=== PATIENT | male | born 1960 | race Caucasian/White ===

== ENCOUNTER → 2017-07-06 | Outpatient (CLI) | payer BC ==
--- NOTE | 2017-07-06 18:34 | PCVCIMAG ---
APPROVED REPORT Exam: Stress Echocardiogram Indication: Chest pain, abn ekg Patient Location: Echo lab Stress Nurse: Nimo Orozco RN Status: MIGUEL Ht: 5 ft 9 in HR: 102 bpm BP: 140/90 mmHg Rhythm: NSR,T wave abn Medical History Medical History: HTN,chol Cardiac Risk Factors: male,>50 yrs Pretest Chest Pain Characteristics: jaw pain,l arm numbness Exercise History: Physically active Procedure The patient underwent an Exercise Stress Test using the Joss Protocol. Blood pressure, heart rate, and EKG were monitored. An Echocardiogram was performed by civilian technician in four stages in quad fashion. At peak stress, four selected images were obtained and placed side by side with resting images for comparison. Stress Test Details Stress Test: Exercise stress testing was performed using a Joss protocol. HR Resting HR: 102 bpmMax Heart Rate (APMHR): 161 bpm Max HR Achieved: 157 bpmTarget HR (85% APMHR): 136 bpm % of APMHR: 97 Recovery HR: 123 bpm HR response to stress: Normal HR response to stress BP Resting BP: 140/90 mmHg Max BP: 162/84 mmHg Recovery BP: 120/84 mmHg ECG Resting ECG: Sinus Tachycardia, T wave abnormality Stress ECG: Sinus Rhythm ST Change: Non-ischemic Maximum ST Deviation: 1.2 mm Arrhythmia: Rare PVCs with exercise Recovery ECG: Sinus Rhythm Recovery ST Change: Non-ischemic Recovery ST Deviation: 0.85 mm Recovery Arrhythmia: None Clinical Reason for Termination: Maximal effort Stress Symptoms: Mild, no change with exercise Exercise duration: 10 min 58 sec Highest Stage Achieved: Stage 4: 4.2 mph at 16% grade. Exercise capacity: 13.7 METs Scale: Active Angina Score: Non-Limiting Stress ECG Conclusion The patient exercised according to the JOSS protocol for10:58 minutes, achieving a work level of Max. METS: 13.7 The resting heart rate of 102 bpm giovanni to a maximal heart rate of 157bpm. This value represents 97% of the maximal, age-predicted heart rate. The resting blood pressure of 140/90 mmHg, giovanni to a maximum blood pressure of 162/84 mmHg. The exercise test was stopped due to fatigue and dyspnea. Love Treadmill Score is 0.0 which is Moderate risk. Pre-Stress Echo The resting Echocardiogram showed normal left ventricular contractility with an estimated Ejection Fraction of about 55-60%. Normal wall motion in all segments on baseline images. Post-Stress Echo The stress Echocardiogram showed normal left ventricular contractility with an estimated Ejection Fraction of about 65-70%. Normal augmentation of wall motion in all segments on post stress images. Clinical No clinical or ECG evidence for ischemia. Conclusion Clinical Response: Non-ischemic Exercise Capacity: Superior Stress ECG Response: Non-ischemic Stress Echo Images: Non-ischemic No clinical, EKG or echocardiographic evidence for ischemia. No echocardiographic evidence for exercise induced ischemia. Normal stress echocardiogram with maximal exercise stress. <Conclusion> No clinical, EKG or echocardiographic evidence for ischemia. No echocardiographic evidence for exercise induced ischemia. Normal stress echocardiogram with maximal exercise stress.
== END | disposition home or self-care (01) ==
LOC: PCVCIMAG 16:47
PROVIDERS: ATTEND Internal Medicine Cardiovascular Disease
DX: I49.3 Ventricular premature depolarization (principal); R94.31 Abnormal electrocardiogram [ECG] [EKG]; I10 Essential (primary) hypertension; E78.5 Hyperlipidemia, unspecified
CPT/HCPCS: 80061; 93005; 93325; 93351; G0463

== ENCOUNTER → 2019-02-19 | Outpatient (CLI) | payer BC ==
--- NOTE | 2019-02-19 11:54 | PCVCIMAG ---
APPROVED REPORT Doppler Spectral Velocity Analysis PSV / EDVPSV / EDV ECA (R) 82 / 17 cm/sECA (L) 77 / 20 cm/s dICA (R) 49 / 24 cm/sdICA (L) 64 / 30 cm/s Jennifer (R) 82 / 38 cm/smICA (L) 52 / 25 cm/s pICA (R) 62 / 17 cm/spICA (L) 50 / 20 cm/s Bulb (R) 81 / 28 cm/sBulb (L) 51 / 20 cm/s dCCA (R) 87 / 33 cm/sdCCA (L) 91 / 27 cm/s mCCA (R) 82 / 30 cm/smCCA (L) 111 / 38 cm/s Vert (R) 63 / 25 cm/sVert (L) 43 / 14 cm/s ICA/CCA 0.94ICA/CCA 0.70 Findings The right carotid bulb has mild-moderate plaque. The right proximal internal carotid artery shows <40% stenosis. The right common carotid artery shows no significant stenosis. The right external carotid artery shows no significant stenosis. The left carotid bulb has minimal plaque. The left proximal internal carotid artery shows no significant stenosis. The left common carotid artery shows no significant stenosis. The left external carotid artery shows no significant stenosis. Conclusion 1. Right internal carotid artery stenosis (<40%) 2. Left internal carotid without significant stenosis 3. Antegrade vertebral flow
== END | disposition home or self-care (01) ==
LOC: PCVCIMAG 11:03
PROVIDERS: ATTEND Internal Medicine Cardiovascular Disease
DX: I65.23 Occlusion and stenosis of bilateral carotid arteries (principal); R09.89 Other specified symptoms and signs involving the circulatory and respiratory systems; E78.00 Pure hypercholesterolemia, unspecified
CPT/HCPCS: 93880

== ENCOUNTER → 2019-02-23 | Outpatient (CLI) | payer BC ==
[~2019-02-23] MED LIST: AMINOPHYLLINE 250 MG/10 ML VIAL. ONE; IV NORMAL SALINE 1000ML BAG 1,000 ML ONE; REGADENOSON 0.4 MG/5 ML DISP.SYRIN. IV ONE
--- NOTE | 2019-02-23 11:21 | PCVCIMAG ---
APPROVED REPORT Study performed: 02/23/2019 08:46:09 EXAM: Comprehensive 2D, Doppler, and color-flow Echocardiogram Patient Location: Echo lab Status: routine BSA: 2.15 HR: 84 bpmBP: 140/84 mmHg Rhythm: NSR w/ PVCs Other Information Study Quality: Adequate Risk Factors: Cardiac Risk Factors: HTN Indications CAD Chest Pain elevated coronary calcium >400 2D Dimensions IVSd: 10.79 (7-11mm) LVDd: 40.63 mm PWd: 8.70 (7-11mm)Ascending Ao: 45.57 (22-36mm) LVDs: 27.74 (25-40mm) Left Atrium: 37.47 (27-40mm) Aortic Root: 41.15 mm LV Single Plane 4CH: 56.18 % LV Single Plane 2CH: 58.24 % Biplane EF: 57.0 % Volumes Left Atrial Volume (Systole) Single Plane 4CH: 63.59 mLSingle Plane 2CH: 51.90 mL LA ESV Index: 27.00 mL/m2 Aortic Valve AoV Peak Iftikhar.: 1.34 m/s AO Peak Gr.: 7.43 mmHgLVOT Max P.56 mmHg LVOT Max V: 0.94 m/s Mitral Valve E/A Ratio: 0.7 MV Decel. Time: 134.74 ms MV E Max Iftikhar.: 0.45 m/s MV A Iftikhar.: 0.66 m/s IVRT: 110.73 ms Pulmonary Valve PV Peak Iftikhar.: 0.76 m/sPV Peak Gr.: 2.30 mmHg Pulmonary Vein P Vein S: 0.26 m/sP Vein A: 0.35 m/s P Vein D: 0.40 m/sP Vein A Dur.: 128.0 msec P Vein S/D Ratio: 0.65 Left Ventricle The left ventricle is normal size. There is normal LV segmental wall motion. There is normal left ventricular wall thickness. Left ventricular systolic function is normal. The left ventricular ejection fraction is within the normal range. LVEF is 55%. Grade I - abnormal relaxation pattern. Right Ventricle The right ventricle is normal size. The right ventricular systolic function is normal. Atria The left atrium size is normal. The right atrium size is normal. Aortic Valve The aortic valve is normal in structure. Mild aortic regurgitation. There is no aortic valvular stenosis. Mitral Valve The mitral valve is normal in structure. Mild mitral regurgitation. No evidence of mitral valve stenosis. Tricuspid Valve The tricuspid valve is normal in structure. Trace tricuspid regurgitation. Unable to assess PA pressure. Pulmonic Valve The pulmonary valve is normal in structure. There is no pulmonic valvular regurgitation. Great Vessels Aortic root is mildly dilated to 4.1 cm. Aortic arch is dilated to 4.6 cm. IVC is normal in size and collapses >50% with inspiration. Pericardium There is no pericardial effusion. There is no pleural effusion. <Conclusion> The left ventricle is normal size. LVEF is 55%. Grade I - abnormal relaxation pattern. The right ventricle is normal size. The left atrium size is normal. The aortic valve is normal in structure. Mild aortic regurgitation. Mild mitral regurgitation. Aortic root is mildly dilated to 4.1 cm. Aortic arch is dilated to 4.6 cm. There is no pericardial effusion.
--- NOTE | 2019-02-23 12:27 | PCVCIMAG ---
APPROVED REPORT Imaging Protocol: Rest Tc-99m/Stress Tc-99m 1 day Study performed: 02/23/2019 10:02:12 Indication: Dyspnea, Chest pain, High Ca Score Patient Location: Out-Patient Stress Nurse: Nimo Orozco RN, Becky Nunez RN [place] Tech:Briseyda Hutchinsonmigel [facility] Ht: 5 ft 9 in Wt: 215 lbs BSA: 2.13 m2 HR: 75 bpm BP: 150/80 mmHg BMI: 31.74 Medical History Medical History: Hyperlipidemia, HTN Medications: Allopurinol, ASA, Hyzaar, Protonix, Crestor Allergies: Iodine Cardiac Risk Factors: Age Previous Cardiac Procedures: Calcium score 1921 Pretest Chest Pain Characteristics: Chin, jaw pain radiating to left arm. Exercise History: Physically active Resting Data Rest SPECT myocardial perfusion imaging was performed in supine position 45 minutes following the intravenous injection of 9.8 mCi of Tc-99m Sestamibi. Time of rest injection: 929 Date: 02/23/2019 Administration Route: IV Administration Site: Right AC Pharmacologic Stress Pharmacologic stress test was performed by injecting Regadenoson 0.4 mg IV push over 10-15 seconds immediately followed by the intravenous injection of 31.6 mCi of Tc-99m Sestamibi. Time of stress injection: 0 Date: 02/23/2019 Administration Route: IV Administration Site: Right AC Gated Stress SPECT was performed 45 minutes after stress injection. The images were gated to evaluate regional wall motion and calculate left ventricular ejection fraction. Stress Test Details Stress Test: Pharmacologic stress was paired with low level exercise. Reason for pharmacologic stress test: Pt not feeling up to Joss Protocol. Reversal agent Aminophyline 100 mg, given intravenously for Hypotension, nausea, near syncope. HRMax Heart Rate (APMHR): 160 bpm Resting HR: 75 bpmTarget HR (85% APMHR): 136 bpm Max HR Achieved: 109 bpm % of APMHR: 68 Recovery HR: 75 bpm BP Resting BP: 150/80 mmHg Max BP: 77/41 mmHg Recovery BP: 117/69 mmHg BP response to stress: Abnormal hypotensive response to stress. ECG Resting ECG: Normal Sinus Rhythm, nonspecific ST-T abnormalities Stress ECG: Sinus Tachycardia, 1mm Inferior ST depression ST Change: Downsloping ST depression Maximum ST Deviation: 1 mm Arrhythmia: Frequent PVC's Recovery ECG: Normal Sinus Rhythm, nonspecific ST-T abnormalities Clinical Reason for Termination: Completed protocol Stress Symptoms: Lightheaded, Nausea, Weakness, Diaphoresis, Near Syncope Exercise duration: 4 min 0 sec Near Syncope in recovery period with nausea, diaphoresis and BP 70/40s. Resolved with aminophylline and IV Fluids after a lengthy recovery period Study Quality Study: Good Study Data Post stress, the left ventricular ejection was 55%.. SSS: 15 SRS: 6 SDS: 9 TID = 1.32. Perfusion There is a large area of moderately reduced uptake in the mid and apical segment of the anteroseptal wall which is seen on the stress images and normalizes on the resting images. This area thickens and moves normally and is most consistent with ischemia. Wall Motion Normal left ventricular wall motion. Nuclear Conclusion ECG Findings: positive for ischemia Clinical Findings: non-diagnostic Nuclear Findings: positive for ischemia Exercise Capacity: not assessed Left Ventricular Function: normal This study reveals a reversible defect in the mid to apical anteroseptum, consistent with ischemia. There is normal LV systolic function.
== END | disposition home or self-care (01) ==
LOC: PCVCIMAG 13:00
PROVIDERS: ATTEND Internal Medicine Cardiovascular Disease
DX: I08.0 Rheumatic disorders of both mitral and aortic valves (principal); I25.110 Atherosclerotic heart disease of native coronary artery with unstable angina pectoris; R07.9 Chest pain, unspecified; R93.1 Abnormal findings on diagnostic imaging of heart and coronary circulation
CPT/HCPCS: 78452; 93017; 93306; A9500; J0280; J2785; J7030

== ENCOUNTER → 2019-11-16 | Outpatient (CLI) | payer BC ==
--- NOTE | 2019-11-16 14:52 | PCVCIMAG ---
APPROVED REPORT Study performed: 11/16/2019 13:28:39 Exam: Stress Echocardiogram Indication: CAD s/p PCI, Hypertension, dilated ascending aorta Patient Location: Echo lab Stress Nurse: Nimo Orozco RN Room #: 2 Status: routine Ht: 5 ft 9 in HR: 81 bpm BP: 140/86 mmHg Rhythm: NSR Medical History Medical History: CAD s/p stent, Hyperlipidemia, HTN Cardiac Risk Factors: HTN, Hyperlipidemia Previous Cardiac Procedures: PCI Pretest Chest Pain Characteristics: No chest pain Exercise History: Physically active Procedure The patient underwent an Exercise Stress Test using the Joss Protocol. Blood pressure, heart rate, and EKG were monitored. An Echocardiogram was performed by wound care technician in four stages in quad fashion. At peak stress, four selected images were obtained and placed side by side with resting images for comparison. Stress Test Details Stress Test: Exercise stress testing was performed using a Joss protocol. HR Resting HR: 81 bpmMax Heart Rate (APMHR): 159 bpm Max HR Achieved: 146 bpmTarget HR (85% APMHR): 135 bpm % of APMHR: 91 Recovery HR: 93 bpm HR response to stress: Normal HR response to stress BP Resting BP: 140/86 mmHg Max BP: 164/86 mmHg Recovery BP: 132/74 mmHg BP response to stress: Normal blood pressure response to stress. ECG Resting ECG: Sinus Rhythm Stress ECG: Sinus Rhythm, NSSTT changes ST Change: Non-ischemic Arrhythmia: rare PVCs,PACs Recovery ECG: Sinus Rhythm Recovery ST Change: Non-ischemic Recovery Arrhythmia: rare PVCs Clinical Reason for Termination: Maximal effort Stress Symptoms: none Exercise duration: 10 min 36 sec Highest Stage Achieved: Stage 4: 4.2 mph at 16% grade. Exercise capacity: 13.7 METs Overall Exercise Capacity for Age: Good Angina Score: None No complications. Pre-Stress Echo The resting Echocardiogram showed normal left ventricular contractility with an estimated Ejection Fraction of about 55-60%. Normal wall motion in all segments on baseline images. Post-Stress Echo The stress Echocardiogram showed normal left ventricular contractility with an estimated Ejection Fraction of about 65-70%. Normal augmentation of wall motion in all segments on post stress images. Clinical No clinical or ECG evidence for ischemia. Conclusion Clinical Response: Non-ischemic Exercise Capacity: Superior Stress ECG Response: Non-ischemic Stress Echo Images: Non-ischemic No clinical, EKG or echocardiographic evidence for ischemia. No echocardiographic evidence for exercise induced ischemia. Normal stress echocardiogram with submaximal exercise stress. Normal color doppler. No stenosis or regurgitation seen in the mitral, aortic,tricuspid or pulmonic valves. <Conclusion> No clinical, EKG or echocardiographic evidence for ischemia. No echocardiographic evidence for exercise induced ischemia. Normal stress echocardiogram with submaximal exercise stress. Normal color doppler. No stenosis or regurgitation seen in the mitral, aortic,tricuspid or pulmonic valves.
== END | disposition home or self-care (01) ==
LOC: PCVCIMAG 13:29
PROVIDERS: ATTEND Internal Medicine Cardiovascular Disease
DX: I25.10 Atherosclerotic heart disease of native coronary artery without angina pectoris (principal); I10 Essential (primary) hypertension; Z95.5 Presence of coronary angioplasty implant and graft
CPT/HCPCS: 93325; 93351